=== PATIENT | female | born 1995 | race Caucasian/White ===

== ENCOUNTER 2019-03-02 06:29 | Emergency (ER) | payer BC ==
[2019-03-02] MEDS ORDERED: Acetaminophen TAB* 325 MG PO ONE (07:12)
[2019-03-02] MEDS ORDERED: Ondansetron ODT TAB* 4 MG SL ONE (07:26)
--- NOTE | 2019-03-02 07:44 | ED ---
Neck Pain - HPI Summary HPI Summary: Pt is a 23 y/o F presenting to the ED with a chief complaint of neck pain onset 02/25/19 running into her shoulder. As of 03/01/19, she had an elevated temperature that lasted until this morning and was as high as 101F. She also c/ o sleep disturbances, waking up with her heart racing, feeling dehydrated despite drinking over 2L of fluid, dark urine, elevated BP, and slight nausea. She denies rash, cough, as well as hx of surgeries. She notes a recent hx of sternal pain onset about 3wks ago that was constant for about 24 hours and intermittent since then. Her father reports she has had multiple fleeting aches and pains over the last month or so. She has hx of POTS along with lots of PACs on prior EKGs. She has an anastacio that can show a 1-lead EKG that showed NSR 96bpm and PACs on 02/25/19, and she had a clear transthoracic echocardiogram last summer. She also states she has had her meningitis and flu vaccines. She has a Fhx of AFib, VTach, and [place] on her paternal side, and her siblings have seizures, Tourettes, Aspergers, and maternal HTN. LNMP 2wks ago. NKDA. Vital signs while in room: HR 97 bpm, BP 143/79, O2 sat 97% Home Medications Medication Instructions Recorded Confirmed Type Clindamycin Phosphate-Tretinoi 1 gel EX DAILY PRN gel 08/01/14 03/02/19 History [Ziana 1.2-0.025 %] Levocetirizine Dihydrochloride 5 mg PO DAILY PRN tab 08/01/14 03/02/19 History [Xyzal] Desogestrel-Ethinyl Estradiol 1 tab PO DAILY 03/02/19 03/02/19 History [Isibloom 28 Day Tablet] Metoprolol Succinate XL TAB* 25 mg PO DAILY 03/02/19 03/02/19 History [Toprol XL TAB*] - History of Current Complaint Chief Complaint: EDGeneral Stated Complaint: FEELING REALLY BAD AND FEVER PER PT Hx Obtained From: Patient, Family/Sustainability Engineer - father Onset/Duration Of Injury/Symptoms: Days Mechanism Of Injury: No Known Trauma Timing: Constant, Lasting Days Onset/Duration: Sudden Onset, Started days ago, Still Present Severity Initially: Moderate Severity Currently: Moderate Pain Intensity: 4 Pain Scale Used: 0-10 Numeric Location: Radiates To: - R shoulder Character: Aching Aggravating Factors: Nothing Alleviating Factors: Nothing Associated Signs & Symptoms: Positive: Fever - Allergies/Home Medications Allergies/Adverse Reactions: Allergies Allergy/AdvReac Type Severity Reaction Status Date / Time No Known Allergies Allergy Unverified 08/01/14 15:35 Home Medications: Home Medications Desogestrel-Ethinyl Estradiol [Isibloom 28 Day Tablet] 1 tab PO DAILY 03/02/19 [ History Confirmed 03/02/19] Metoprolol Succinate XL TAB* [Toprol XL TAB*] 25 mg PO DAILY 03/02/19 [History Confirmed 03/02/19] PMH/Surg Hx/FS Hx/Imm Hx Previously Healthy: Yes Endocrine/Hematology History: Denies: Hx Diabetes Cardiovascular History: Reports: Other Cardiovascular Problems/Disorders - POTS , PACs - Surgical History Surgery Procedure, Year, and Place: No surgical hx. Infectious Disease History: No Infectious Disease History: Denies: Traveled Outside the [place] in Last 30 Days - Family History Known Family History: Positive: Cardiac Disease - Vtach, [place], AFib - paternal, Hypertension - maternal, Seizure Disorder - seizures, tourette's, asperger's - sibling - Social History Occupation: Student Alcohol Use: None Hx Substance Use: No Substance Use Type: Reports: None Hx Tobacco Use: No Smoking Status (MU): Never Smoked Tobacco Review of Systems Positive: Fever, Other - sleep disturbances Positive: Other - waking up with heart racing Negative: Cough Positive: Nausea Positive: other - dark urine Positive: Myalgia - neck pain, radiates to R shoulder Negative: Rash All Other Systems Reviewed And Are Negative: Yes Physical Exam - Summary Physical Exam Summary: Appearance: Ill-appearing, moderate pain distress, well-nourished Skin: Warm, color reflects adequate perfusion, dry Head: Normal Head/Face inspection, atraumatic Eyes: Conjunctiva clear ENT: Normal inspection Neck: Supple, no nodes, no JVD Respiratory: Lungs clear, normal breath sounds, no respiratory distress Cardio: RRR, No murmur, pulses normal, brisk capillary refill Abdomen: Soft, nontender Bowel sounds: Present Musculoskeletal: Strength Intact/ROM intact, no calf tenderness, no edema. Psychological: Normal Neuro: Alert, muscle tone normal, no focal deficit Triage Information Reviewed: Yes Vital Signs On Initial Exam: Initial Vitals Temp Pulse Resp BP Pulse Ox 98.3 F 116 18 139/83 97 03/02/19 06:30 03/02/19 06:30 03/02/19 06:30 03/02/19 06:30 03/02/19 06:30 Vital Signs Reviewed: Yes Diagnostics - Vital Signs Vital Signs Temp Pulse Resp BP Pulse Ox 03/02/19 06:30 98.3 F 116 18 139/83 97 - Laboratory Result Diagrams: 03/02/19 07:39 03/02/19 07:39 Lab Statement: Any lab studies that have been ordered have been reviewed, and results considered in the medical decision making process. - EKG 0729 Cardiac Rate: NL - 90bpm EKG Rhythm: Sinus Rhythm ST Segment: Normal Ectopy: PACs Summary of EKG Findings: An EKG at 0729 reveals NSR 90bpm with nml AV/IV CT, nml QTc, and nml axis. There is positive ectopy with present PACs. Re-Evaluation - Re-Evaluation 1st re-eval Re-Evaluation Time: 09:49 Change: Unchanged Comment: Pt still having heart palpitations that she can feel, due to being in atrial bigeminy. Second Eval Re-Evaluation Time: 11:00 Change: Improved Comment: Pt is orthostatic for pulse. Will give additional liter of fluids. No CP, SOB, neck is supple. Neck Course/Dx - Course Course Of Treatment: Pt is a 23 y/o F presenting to the ED with a chief complaint of neck pain onset 02/25/19 running into her shoulder. As of 03/01/19, she had an elevated temperature that lasted until this morning and was as high as 101F. She also c/o sleep disturbances, waking up with her heart racing, feeling dehydrated despite drinking over 2L of fluid, dark urine, elevated BP, and slight nausea. She denies rash, cough, as well as any hx of surgeries. She has a hx of POTS with multiple PACs, and a Fhx of AFib, [place], Vtach, HTN, Tourette 's, Asperger's, and Sz disorder. LNMP 2wks ago. NKDA. Vital signs while in room: HR 97 bpm, BP 143/79, O2 sat 97%. In the ED course, the pt was given Zofran for her nausea, as well as Tylenol for her pain, and fluids. Her lab results show a lactate of 0.4, a CRP of 28.85, BUN of 5, and BUN/Creatinine ratio of 6.2. Her UA is nml aside from trace ketones. Pt's platelets are clumped. WBC is 6.4 (with reactive lymphs 10) H/H is 12.9/38. I was made aware of her troponin level of 0.01 at 0825. An EKG at 0729 reveals NSR at 90bpm, nml AV/IV CT, nml QTc, and nml axis. There is positive ectopy with present PACs. I was made aware of an oral temperature of 100.2 at 0838. She is negative for Influenza A&B. Her platelets are clumped, but she does have 10 reactive nymphs. 0943 - Documented atrial bigeminy on an EKG strip. As of 0949 , the pt is still having heart palpitations that she can feel, due to being in atrial bigeminy. 0950 - I spoke with Dr. Anderson who thinks the pt may be in atrial bigeminy due to combination of viral illness, fever, and dehydration. Dr. Anderson does not recommend changing any of her medications. Her monoscreen is negative. She was given also given metoprolol in the ED course. As of approximately 1300, the pt states she is "back to normal" and was ambulating independently, reportedly feeling fine. She will be d/c'ed with dx including viral syndrome, POTS, dehydration, and fever, and she is agreeable with this plan. Final orthostatics on this pt include: 115/60 BP, HR 88bpm, when lying down, BP 115/63 HR 90bpm when sitting up, and BP 107/60 HR 92bpm when standing. - Diagnoses Differential Dx/HQI/PQRI: Positive: Adenitis, Meningitis, Other - influenza, mononucleosis, Lyme disease Provider Diagnoses: Viral syndrome, POTS (postural orthostatic tachycardia syndrome), Dehydration, Fever Discharge - Sign-Out/Discharge Documenting (check all that apply): Patient Departure Patient Received Moderate/Deep Sedation with Procedure: No - Discharge Plan Condition: Stable Disposition: HOME Patient Education Materials: Fever in Adults (ED), Viral Syndrome (ED), Premature Atrial Contractions (ED) Forms: *School Release Referrals: [facility] - [facility] [, APPLICATION, OTHER] - 2 Days Additional Instructions: We feel that the cause of your fever is a viral syndrome. You should continue to hydrate and also take Tylenol as needed for fever. You were given Tylenol at 0713 in the ER, and zofran for nausea at 0730, and three liters of normal saline fluid, with improvement in your fever and your palpitations. We spoke with Dr. Anderson and she did not feel that we needed to increase your cardiac meds, and that you did not need to see her again, unless your symptoms worsen. We also gave you your usual morning dose of Metoprolol Succinate 25mg at 11:15 today. Your blood pressure was elevated when you first arrived, but normalized without any treatment. We talked with your father about discharge, and he also agreed with discharge. Return to the ER with any new or worsening symptoms. - Attestation Statements Document Initiated by Geovanyibe: Yes Documenting Scribe: Terri Lawler Provider For Whom Gabby is Documenting (Include Credential): Dr. Gwen Fernández MD. Scribe Attestation: I, Terri Lawler, scribed for Dr. Gwen Fernández MD. on 03/02/19 at 1426. Status of Scribe Document: Ready Consult Consult: [id number] - I spoke with Dr. Anderson who thinks the pt may be in atrial bigeminy due to combination of viral illness, fever, and dehydration. Dr. Anderson does not recommend changing any of her medications.
[2019-03-02] MEDS: NS 0.9% 1000 ML** 2,000 ML IV ONE (08:05)
[2019-03-02 08:11] LABS: INR 1.03 (0.82-1.09)
[2019-03-02 08:18] LABS: Hematocrit 38 % (33-41); Hemoglobin 12.9 g/dL (12.0-16.0); Mean Corpuscular HGB Conc 34 g/dL (31-36); Mean Corpuscular Hemoglobin 29 pg (27-31); Mean Corpuscular Volume 85 fL (80-97); Red Blood Count 4.47 10^6 /uL (3.70-4.87); Red Cell Distribution Width 14 % (10.5-15); White Blood Count 6.4 10^3/uL (3.5-10.8)
[2019-03-02 08:23] LABS: ALT 44 U/L (7-52); AST 37 U/L (13-39); Albumin 3.9 g/dL (3.2-5.2); Albumin/Globulin Ratio 1.4 (1-3); Alkaline Phosphatase 102 U/L (34-104); Anion Gap 4 mmol/L (2-11); BUN/Creatinine Ratio 6.2 (8-20); Blood Urea Nitrogen 5 mg/dL (6-24); C Reactive Protein 28.85 mg/L (<8.01); CO2 Carbon Dioxide 25 mmol/L (22-32); Chloride 106 mmol/L (101-111); EGFR Non-African American 89.3 (>60); Globulin 2.8 g/dL (2-4); Glucose 92 mg/dL (70-100); Magnesium 2.2 mg/dL (1.9-2.7); Potassium 4.3 mmol/L (3.5-5.0); Sodium 135 mmol/L (135-145); Total Protein 6.7 g/dL (6.4-8.9)
[2019-03-02 08:25] LABS: Troponin I 0.01 ng/mL (<0.04)
[2019-03-02 08:27] LABS: Urine Appearance Clear; Urine Bilirubin Negative (Negative); Urine Blood Negative (Negative); Urine Color Yellow; Urine Glucose Negative (Negative); Urine Ketones Trace (Negative); Urine Nitrite Negative (Negative); Urine Protein Negative (Negative); Urine Urobilinogen Negative (Negative)
[2019-03-02 08:28] LABS: HCG Pregnancy < 0.60 mIU/mL
[2019-03-02 08:43] LABS: Platelet Count Platelets clumped. 10^3/uL (150-450)
[2019-03-02 08:44] LABS: ABS Basophils 0 10^3/ul (0-0.2); ABS Eosinophils 0.1 10^3/ul (0-0.6); ABS Lymphocytes 3.3 10^3/ul (1.0-4.8); ABS Monocytes 0.4 10^3/ul (0-0.8); ABS Neutrophils 2.5 10^3/ul (1.5-7.7)
[2019-03-02 08:47] LABS: Immature Granulocytes 1 % (0-9); Lymphocytes % 43 %; Monocytes % 7 %; Neutrophil % 38 %; Variant Lymph % 10 % (0-6)
[2019-03-02 08:48] LABS: ABS Eosinophils 0.064 10^3/ul (0-0.6)
[2019-03-02 08:54] LABS: Influenza A Molecular NEGATIVE (Negative); Influenza B Molecular NEGATIVE (Negative)
[2019-03-02] MEDS ORDERED: Metoprolol Succinate XL TAB* 25 MG PO ONE (11:12)
[2019-03-02] MEDS ORDERED: NS 0.9% 1000 ML** 1,000 ML IV SCH (11:30)
[2019-03-02] MEDS ORDERED: NS 0.9% 1000 ML** 1,000 ML IV ONE (12:00)
[2019-03-02 14:05] VITALS: BP 107/60
[2019-03-03 14:33] LABS: EBV Capsid Ag IgG Ab Positive (Negative); EBV Capsid Ag IgM Ab Negative (Negative); Epstein-Barr Nuclear Antigen Positive (Negative)
[2019-03-04 23:47] LABS: B garinii/B afzelii PCR Negative (Negative); B mayonii PCR Negative (Negative)
== END 2019-03-02 14:03 ==
LOC: ED 06:29
DX: R00.0 Tachycardia, unspecified (principal); E86.0 Dehydration; R50.9 Fever, unspecified; B34.9 Viral infection, unspecified; R94.31 Abnormal electrocardiogram [ECG] [EKG]; Z79.899 Other long term (current) drug therapy
CPT/HCPCS: 36415; 80053; 81003; 83605; 83735; 84484; 84702; 85025; 85060; 85610; 86140; 86308; 86664; 86665; 87040; 87476; 87798; 93005; 96360; 96361; 99283; A9270-GY

== ENCOUNTER 2019-06-16 21:46 | Emergency (ER) | payer BC ==
--- NOTE | 2019-06-17 00:14 | ED ---
Complex/Multi-Sys Presentation - HPI Summary HPI Summary: Patient is a 24 y/o F presenting to ED with complaints of episodes of dysphagia , SOB, dizziness over the past month. She states that she had an episode tonight. Dizziness is characterized as a light-headedness. Patient reports that she took Benadryl and that Sx are resolved at present. However, she does state that she has some tonsil discomfort and feels dehydrated at present. Patient is on control and metoprolol. She is known to have frequent PACs, an arrhythmia, and POTS. Patient's father, who is present in the room, states that the patient had a cardioechogram that was normal. Hx of anxiety, but no panic attacks. On triage, pain is denied. Home medications and allergies are reviewed. - History Of Current Complaint Chief Complaint: EDDizziness Time Seen by Provider: 06/16/19 23:57 Hx Obtained From: Patient Onset/Duration: Still Present - tonsil discomfort and dehydration, Resolved - SOB, dizziness, dysphagia Timing: Intermittent, Lasting: Severity Currently: None Associated Signs And Symptoms: Positive: Dizziness, SOB, Other - positive - dysphagia, tonsil discomfort, dehydration - Allergies/Home Medications Allergies/Adverse Reactions: Allergies Allergy/AdvReac Type Severity Reaction Status Date / Time No Known Allergies Allergy Unverified 06/16/19 21:49 PMH/Surg Hx/FS Hx/Imm Hx Endocrine/Hematology History: Denies: Hx Diabetes Cardiovascular History: Reports: Other Cardiovascular Problems/Disorders - POTS , PACs - Surgical History Surgery Procedure, Year, and Place: No surgical hx. Infectious Disease History: No Infectious Disease History: Denies: Traveled Outside the [place] in Last 30 Days - Family History Known Family History: Positive: Cardiac Disease - Vtach, [place], AFib - paternal, Hypertension - maternal, Seizure Disorder - seizures, tourette's, asperger's - sibling - Social History Alcohol Use: None Hx Substance Use: No Substance Use Type: Reports: None Hx Tobacco Use: No Smoking Status (MU): Never Smoked Tobacco Review of Systems Constitutional: Other - positive - dehydration ENT: Other - positive - dysphagia, tonsil discomfort Positive: Shortness Of Breath Neurological: Other - positive - dizziness All Other Systems Reviewed And Are Negative: Yes Physical Exam - Summary Physical Exam Summary: VITAL SIGNS: Reviewed. GENERAL: Patient is a well-developed and nourished female who is lying comfortable in the stretcher. Patient is not in any acute respiratory distress. HEAD AND FACE: No signs of trauma. No ecchymosis, hematomas or skull depressions. No sinus tenderness. EYES: PERRLA, EOMI x 2, No injected conjunctiva, no nystagmus. EARS: Hearing grossly intact. Ear canals and tympanic membranes are within normal limits. MOUTH: Oropharynx within normal limits. NECK: Supple, trachea is midline, no adenopathy, no JVD, no carotid bruit, no c- spine tenderness, neck with full ROM CHEST: Symmetric, no tenderness at palpation LUNGS: Clear to auscultation bilaterally. No wheezing or crackles. CVS: Irregular tachycardic, S1 and S2 present, no murmurs or gallops appreciated. ABDOMEN: Soft, non-tender. No signs of distention. No rebound no guarding, and no masses palpated. Bowel sounds are normal. EXTREMITIES: FROM in all major joints, no edema, no cyanosis or clubbing. NEURO: Alert and oriented x 3. No acute neurological deficits. Speech is normal and follows commands. SKIN: Dry and warm Triage Information Reviewed: Yes Vital Signs On Initial Exam: Initial Vitals Temp Pulse Resp BP Pulse Ox 98.9 F 96 18 141/92 99 06/16/19 21:48 06/16/19 21:48 06/16/19 21:48 06/16/19 21:48 06/16/19 21:48 Vital Signs Reviewed: Yes Diagnostics - Vital Signs Vital Signs Temp Pulse Resp BP Pulse Ox 06/16/19 23:40 98.1 F 70 16 117/72 100 06/16/19 21:48 98.9 F 96 18 141/92 99 - Laboratory Result Diagrams: 06/17/19 00:22 06/17/19 00:22 Lab Statement: Any lab studies that have been ordered have been reviewed, and results considered in the medical decision making process. - EKG 2156 Cardiac Rate: Other Rate - sinus arrhythmia with rate of 77 BPM Summary of EKG Findings: EKG showed sinus arrhythmia with rate of 77 BPM, no ischemic changes. Re-Evaluation - Re-Evaluation First Eval Re-Evaluation Time: 02:04 Comment: Patient had initially refused fluids, but at this time, she states she has changed her mind and would like to receive them. Complex Multi-Symp Course/Dx Course Of Treatment: Patient is a 24 y/o F presenting to ED with complaints of episodes of dysphagia, SOB, dizziness over the past month. She states that she had an episode tonight. Dizziness is characterized as a light-headedness. Patient reports that she took Benadryl and that Sx are resolved at present. However, she does state that she has some tonsil discomfort and feels dehydrated at present. Patient is on control and metoprolol. She is known to have frequent PACs, an arrhythmia, and POTS. Patient's father, who is present in the room, states that the patient had a cardioechogram that was normal. Hx of anxiety, but no panic attacks. On physical exam, irregular tachycardia is noted. EKG showed sinus arrhythmia with rate of 77 BPM, no ischemic changes. Bloodwork was unremarkable. Patient initially refused fluids but later changed her mind and received them. She was discharged to home and will follow up with PCP within three days. - Diagnoses Provider Diagnoses: Dizziness Discharge - Sign-Out/Discharge Documenting (check all that apply): Patient Departure - discharge Patient Received Moderate/Deep Sedation with Procedure: No - Discharge Plan Condition: Stable Disposition: HOME Patient Education Materials: Dizziness (ED) Referrals: [facility] [Outside] - 3 Days Additional Instructions: PLEASE RETURN TO ED FOR ANY NEW OR WORSENING SYMPTOMS. FOLLOW UP WITH YOUR PRIMARY CARE PHYSICIAN WITHIN THREE DAYS. - Attestation Statements Document Initiated by Scribe: Yes Documenting Scribe: COLETTE SCHULZ Provider For Whom Gabby is Documenting (Include Credential): HENNA HARDY MD Scribe Attestation: ICOLETTE, tyshawnibed for HENNA HARDY MD on 06/17/19 at 0321. Status of Scribe Document: Ready
[2019-06-17 00:45] LABS: ABS Lymphocytes 2.5 10^3/ul (1.0-4.8); ABS Monocytes 0.4 10^3/ul (0-0.8); ABS Neutrophils 2.3 10^3/ul (1.5-7.7); Eosinophil % 0.8 %; Hematocrit 38 % (35-47); Hemoglobin 13.3 g/dL (12.0-16.0); Lymphocyte % 46.9 %; Mean Corpuscular HGB Conc 35 g/dL (31-36); Mean Corpuscular Hemoglobin 30 pg (27-31); Mean Corpuscular Volume 85 fL (80-97); Mean Platelet Volume 8.3 fL (7.4-10.4); Platelet Count 179 10^3/uL (150-450); Red Blood Count 4.48 10^6 /uL (3.70-4.87); Red Cell Distribution Width 13 % (10-15); White Blood Count 5.3 10^3/uL (3.5-10.8)
[2019-06-17 00:57] LABS: ALT 18 U/L (7-52); AST 20 U/L (13-39); Albumin 4.5 g/dL (3.2-5.2); Albumin/Globulin Ratio 1.7 (1-3); Alkaline Phosphatase 40 U/L (34-104); Anion Gap 10 mmol/L (2-11); BUN/Creatinine Ratio 12.8 (8-20); Blood Urea Nitrogen 10 mg/dL (6-24); CO2 Carbon Dioxide 22 mmol/L (22-32); Calcium 9.5 mg/dL (8.6-10.3); Chloride 106 mmol/L (101-111); EGFR African American 111.7 (>60); EGFR Non-African American 92.4 (>60); Globulin 2.6 g/dL (2-4); Glucose 87 mg/dL (70-100); Magnesium 2.3 mg/dL (1.9-2.7); Potassium 3.6 mmol/L (3.5-5.0); Sodium 138 mmol/L (135-145); Total Protein 7.1 g/dL (6.4-8.9)
[2019-06-17 01:04] LABS: HCG Pregnancy < 0.60 mIU/mL
[2019-06-17 01:11] LABS: TSH (Thyroid Stimulating Horm) 2.51 mcIU/mL (0.34-5.60)
[2019-06-17] MEDS: NS 0.9% 1000 ML** 1,000 ML IV ONE ×2 (01:15→02:15)
[2019-06-17 02:45] VITALS: BP 112/74
== END 2019-06-17 02:45 | disposition home or self-care (01) ==
LOC: ED 21:46
DX: R42 Dizziness and giddiness (principal)
CPT/HCPCS: 36415; 80053; 83735; 84443; 84702; 85025; 86308; 93005; 96360; 96361; 99283